=== PATIENT | female | born 1955 | race African-American/Black ===

== ENCOUNTER 2017-07-29 19:08 | Emergency (ER) | payer MEDICARE, OTHER ==
[~2017-07-29] VITALS: Ht 167.6 cm; Wt 77.1 kg
[~2017-07-29 19:08] MED LIST: DITROPAN10 MG ORAL; OXYTROL FOR WO1 EACH TD; ZANTAC150 MG ORAL
[2017-07-29 19:33] VITALS: BP 157/91
[2017-07-29] MEDS ORDERED: Hydrogen Peroxide 473ml Bottle TOPIC ONE (20:00)
[2017-07-29] MEDS ORDERED: Norco 7.5mg/325mg tab ORAL ONE (20:00)
[2017-07-29] MEDS ORDERED: Hurricaine 20% Spray ORO ONE (20:00)
--- NOTE | 2017-07-29 20:29 | Emergency Room Report ---
History of Present Illness General Chief Complaint: Toothache Present Illness HPI 61-year-old female presents to the emergency department complaining of 10 out of 10 in severity pain with swelling and tenderness to the gumline about her left lower molar. Patient states that she had previous dental procedure done over 2 years ago that was left incomplete with temporary filling which fell out almost immediately. Patient reports pain, tenderness, swelling and erythema x3- 4 days which has been progressive. Patient denies fevers or chills. Patient denies trauma or fall. Patient states she's been taking extra strength Tylenol with no relief. Reports history of poor dentition and does not like to go to the dentist due to previous experiences. Denies CP, Palpitations, LOC, AMS, dizziness, Changes in Vision, Sensation, paresthesias, or a sudden severe headache. Allergies: Coded Allergies: METRONIDAZOLE (Verified Allergy, Unknown, 08/23/16) Patient History Past Medical History: see triage record Past Surgical History: none Pertinent Family History: none Now: No Immunizations: UTD Reviewed Nursing Documentation: PMH: Agreed, PSxH: Agreed Review of Systems All Other Systems: negative except mentioned in HPI Physical Exam Vital Signs Date Time Temp Pulse Resp B/P (MAP) Pulse Ox O2 Delivery O2 Flow Rate FiO2 07/29/17 19:13 98.1 75 157/91 98 Sp02 EP Interpretation: reviewed, normal General Appearance: alert, GCS 15, non-toxic, mild distress Head: normocephalic, atraumatic Eyes: bilateral eye normal inspection, bilateral eye PERRL ENT: hearing grossly normal, normal pharynx, no angioedema, normal voice, uvula midline, moist mucus membranes, other - gum abscess and infection about tooth number 18. - Palpable fluctuance, swelling, and ttp, overall very poor dentition , multiple observed dental carries, cracked teeth, and mal odor. Neck: full range of motion Respiratory: lungs clear, normal breath sounds, speaking full sentences Cardiovascular #1: regular rate, rhythm Musculoskeletal: back normal, gait/station normal, normal range of motion, non- tender Neurologic: alert, oriented x3, responsive, motor strength/tone normal, sensory intact, speech normal Psychiatric: judgement/insight normal, memory normal, mood/affect normal Skin: normal color, no rash, warm/dry, well hydrated Lymphatic: no adenopathy Procedures Incision and Drainage Incision and Drainage : Consent: Verbal Site: GUM Line of tooth 18 Blade Size: 11 Wound Location: other - oral mucosa: gumline of tooth no. 18 Wound Explored: contaminated - purulent d/c expressed Irrigated w/ Saline (ccs): 500 Anesthesia: other - 20% hurricaine spray Splint Applied?: No Sling Applied?: No Patient Tolerated: Well Complications: None Medical Decision Making PA Attestation Dr. johnson is my supervising Physician whom patient management has been discussed with. Diagnostic Impression: Primary Impression: Gum abscess ER Course 61-year-old female presents to the emergency department complaining of 10 out of 10 in severity pain with swelling and tenderness to the gumline about her left lower molar. Patient states that she had previous dental procedure done over 2 years ago that was left incomplete with temporary filling which fell out almost immediately. Patient reports pain, tenderness, swelling and erythema x3- 4 days which has been progressive. Patient denies fevers or chills. Patient denies trauma or fall. Patient states she's been taking extra strength Tylenol with no relief. Reports history of poor dentition and does not like to go to the dentist due to previous experiences. Denies CP, Palpitations, LOC, AMS, dizziness, Changes in Vision, Sensation, paresthesias, or a sudden severe headache. Ddx considered but are not limited to:tooth abscess, tooth avulsion, CHEESE COOK, ludwigs angina, cellulitis just to name a few Vital signs: are WNL, pt. is afebrile H&PE are most consistent with: gum abscess and infection about tooth number 18. - Palpable fluctuance, swelling, and ttp ORDERS: None required at this time as the diagnosis is clinical ED INTERVENTIONS: -I & D - Pt is given list of dental referrals, and d/w pt. oral abx and dental follow up. d/w pt. to return to the ED with worsening or new symptoms. DISCHARGE: At this time pt. is stable for d/c to home. Will provide printed patient care instructions, and any necessary prescriptions. Care plan and follow up instructions have been discussed with the patient prior to discharge. Last Vital Signs Date Time Temp Pulse Resp B/P (MAP) Pulse Ox O2 Delivery O2 Flow Rate FiO2 07/29/17 19:13 98.1 75 157/91 98 Disposition: HOME, SELF-CARE Condition: Stable Scripts Ranitidine Hcl* (ZANTAC*) 150 Mg Tablet 150 MG ORAL TWICE A DAY for 10 Days, #20 TAB Prov: Scarlett Santos 07/29/17 Naproxen* (NAPROXEN*) 500 Mg Tablet.dr 500 MG ORAL TWICE A DAY, #20 TAB Prov: Scarlett Santos 07/29/17 Amoxicillin* (AMOXIL*) 500 Mg Capsule 500 MG ORAL BID for 7 Days, #14 CAP Prov: Scarlett Santos 07/29/17 Hydrocodone Bit/Acetaminophen 5-325* (NORCO 5-325*) 1 Each Tablet 1 TAB ORAL Q6H Y for For Pain, #9 TAB 0 Refills Prov: Scarlett Santos 07/29/17 Referrals: [facility] (PCP) Patient Instructions: Dental Abscess, [id number] Additional Instructions: Take medications as directed. Follow up with a Dentist in 3-5 days, even if your symptoms have resolved. * * --Please review list of Dentist, if you do not already have a preferred Dentist Return sooner to ED if new symptoms occur, or current symptoms become worse. Do not drink alcohol, drive, or operate heavy machinery while taking Nebo as this may cause drowsiness. - Please note that this Emergency Department Report was dictated using Spondoeditor newspaper technology software, occasionally this can lead to erroneous entry secondary to interpretation by the dictation equipment. Scarlett Santos Jul 29, 2017 20:29
[2017-07-29] MEDS ORDERED: NORCO 5-325 TA1 EACH ORAL (20:30)
[2017-07-29] MEDS ORDERED: ZANTAC150 MG ORAL (20:30)
[2017-07-29] MEDS ORDERED: NAPROXEN500 M1 ORAL (20:30)
[2017-07-29] MEDS ORDERED: AMOXICILLIN500 MG ORAL (20:30)
[2017-07-29 20:43] VITALS: BP 157/91
== END 2017-07-29 20:43 | disposition home or self-care (01) ==
LOC: EMR 19:45
DX: K05.219 Aggressive periodontitis, localized, unspecified severity (principal); Z88.1 Allergy status to other antibiotic agents
CPT/HCPCS: 10060; 99284

== ENCOUNTER 2018-03-05 09:11 | Emergency (ER) | payer MEDICARE, OTHER ==
[~2018-03-05] VITALS: Ht 162.6 cm; Wt 68.0 kg
[~2018-03-05 09:11] MED LIST changes: +AMOXICILLIN500 MG ORAL; +NAPROXEN500 M1 ORAL; +NORCO 5-325 TA1 EACH ORAL
[2018-03-05 09:13] VITALS: BP 135/91
[2018-03-05] MEDS ORDERED: PEPCID40 MG PO (09:39)
[2018-03-05] MEDS ORDERED: ZITHROMAX500 MG ORAL (09:39)
[2018-03-05] MEDS ORDERED: ZOFRAN ODT4 MG ORAL (09:39)
[2018-03-05 09:44] VITALS: BP 135/91
--- NOTE | 2018-03-05 10:12 | Emergency Room Report ---
History of Present Illness General Chief Complaint: General Complaint Source: Patient Present Illness HPI Patient initially presents with main complaint of nasal congestion and maxillary sinus pressure Sore throat Intermittent low-grade fevers Patient denies any headache denies any posterior neck pain However she does have some pain with swallowing Also complaining of mild cough Symptoms ongoing for over 2 weeks denies any recent travel Denies any chest pain Patient also reports that she has problems with her stomach Presents this as a chronic type pathology which she is asking guidance on Reports that her family had told her that she should have her esophagus checked because it can be sign of cancer Allergies: Coded Allergies: METRONIDAZOLE (Verified Allergy, Unknown, 08/23/16) Patient History Past Medical History: see triage record Pertinent Family History: none Reviewed Nursing Documentation: PMH: Agreed; PSxH: Agreed Review of Systems All Other Systems: negative except mentioned in HPI Physical Exam Vital Signs Date Time Temp Pulse Resp B/P (MAP) Pulse Ox O2 Delivery O2 Flow Rate FiO2 03/05/18 09:13 98.5 100 20 135/91 100 Room Air 98.4 Sp02 EP Interpretation: reviewed, normal General Appearance: well appearing, no apparent distress Head: normocephalic, atraumatic Eyes: bilateral eye PERRL, bilateral eye EOMI ENT: hearing grossly normal, TMs + canals normal, uvula midline, pharyngeal erythema, other - Increased reproducible pressure over the anterior maxillary sinuses Neck: full range of motion, supple, no meningismus, no bony tend Respiratory: lungs clear, normal breath sounds, no rhonchi, no respiratory distress, no retraction, no accessory muscle use Cardiovascular #1: normal peripheral pulses, regular rate, rhythm, no edema, no gallop, no JVD, no murmur Gastrointestinal: normal bowel sounds, non tender, soft, no mass, no organomegaly, non-distended, no guarding, no hernia, no pulsatile mass, no rebound Genitourinary: no CVA tenderness Musculoskeletal: normal inspection Neurologic: oriented x3, responsive, home planning consultant salesperson III-XII nml as tested, motor strength/ tone normal, sensory intact Psychiatric: mood/affect normal Skin: normal color, no rash, warm/dry, palpation normal Lymphatic: normal inspection, no adenopathy Medical Decision Making Diagnostic Impression: Primary Impression: sinusitis ER Course Given the patient's prolonged symptoms and continued fevers Patient meets criteria for antibiotic coverage for acute sinusitis failed outpatient therapy Patient's gastrointestinal concerns are discussed with her and she understands the importance of close outpatient follow-up Last Vital Signs Date Time Temp Pulse Resp B/P (MAP) Pulse Ox O2 Delivery O2 Flow Rate FiO2 03/05/18 09:44 209.3 20 135/91 100 Room Air 209.3 03/05/18 09:13 100 Status: improved Disposition: HOME, SELF-CARE Condition: Stable Scripts Azithromycin (ZITHROMAX) 500 Mg Tablet 500 MG ORAL DAILY for 10 Days, TAB Prov: Bhavya Ba DO 03/05/18 Famotidine (PEPCID) 40 Mg Tablet 40 MG PO DAILY, #14 TAB 0 Refills Prov: Bhavya Ba DO 03/05/18 Ondansetron Odt* (ZOFRAN ODT*) 4 Mg Tab.rapdis 4 MG ORAL Q6H PRN for Nausea & Vomiting, #12 TAB 0 Refills Prov: Bhavya Ba DO 03/05/18 Referrals: PATR[facility] (PCP) Patient Instructions: Sinusitis, Adult, [id number] Additional Instructions: You have also voiced concern regarding your abdominal discomfort that has been ongoing for the past one year. you reported that you were told by family that this should be checked. Following up with your primary physician, for further gastroenterology consultation and possible upper endoscopy is highly recommended. Bhavya Ba DO Mar 05, 2018 10:12
== END 2018-03-05 09:44 | disposition home or self-care (01) ==
LOC: EMR 09:30
DX: J32.9 Chronic sinusitis, unspecified (principal)
CPT/HCPCS: 99284